=== PATIENT | male | born 1965 | race Two or more races ===

== ENCOUNTER 2017-08-30 10:44 | Inpatient (IN) | payer OTHER ==
[2017-08-30 13:22] VITALS: BMI 18.8
--- NOTE | 2017-08-30 14:58 | HP ---
COWS - Scale Resting Pulse: 0= [place] 80 or Below Sweatin= Chills/Flushing Restless Observation: 3= Extraneous Movement Pupil Size: 1= Pupils >than Normal Bone or Joint Aches: 2= Severe Diffuse Aches Runny Nose/ Eye Tearin= Runny Nose/Eyes GI Upset > 30mins: 2= Nausea/Diarrhea Tremor Observation: 2= Slight Tremor Visible Yawning Observation: 2= >3x During Session Anxiety or Irritability: 2=Irritable/Anxious Goose Flesh Skin: 0=Smooth Skin COWS Score: 17 Admission ROS S - HPI Chief Complaint: withdrawal sx Allergies/Adverse Reactions: Allergies Allergy/AdvReac Type Severity Reaction Status Date / Time No Known Allergies Allergy Verified 08/30/17 15:01 History of Present Illness: 51 years old male with long history of opiate nicotine dependence has depression is admitted to detox longest sobriety x 1 years + 2 years patient wants to do the best in this dotox Exam Limitations: No Limitations - Ebola screening Have you traveled outside of the country in the last 21 days: No Have you had contact with anyone from an Ebola affected area: No Have you been sick,other than usual withdrawal symptoms: No Do you have a fever: No - Review of Systems Constitutional: Loss of Appetite, Changes in sleep, Unintentional Wgt. Loss, Unexplained wgt Loss EENT: reports: No Symptoms Reported Respiratory: reports: No Symptoms reported Cardiac: reports: No Symptoms Reported GI: reports: Nausea, Poor Appetite, Poor Fluid Intake, Abdominal cramping : reports: No Symptoms Reported Musculoskeletal: reports: Back Pain, Joint Pain, Muscle Pain, Neck Pain Integumentary: reports: No Symptoms Reported Neuro: reports: Tremors Endocrine: reports: No Symptoms Reported Hematology: reports: No Symptoms Reported Psychiatric: reports: Judgement Intact, Orientated x3, Anxious, Depressed Other Systems: Reviewed and Negative Patient History - Patient Medical History Hx Anemia: No Hx Asthma: No Hx Chronic Obstructive Pulmonary Disease (COPD): No Hx Cancer: No Hx Cardiac Disorders: No Hx Congestive Heart Failure: No Hx Hypertension: No Hx Hypercholesterolemia: No Hx Pacemaker: No HX Cerebrovascular Accident: No Hx Seizures: No Hx Dementia: No Hx Diabetes: No Hx Gastrointestinal Disorders: No Hx Liver Disease: No Hx Genitourinary Disorders: No Hx Sexually Transmitted Disorders: No Hx Renal Disease (ESRD): No Hx Thyroid Disease: No Hx Human Immunodeficiency Virus (HIV): No Hx Hepatitis C: No Hx Depression: Yes Hx Suicide Attempt: No Hx Bipolar Disorder: No Hx Schizophrenia: No - PPD History Previous Implant?: Yes Documented Results: Negative w/o proof Implanted On Prior [facility] Admission?: No PPD to be Administered?: Yes - Smoking Cessation Smoking history: Current every day smoker Have you smoked in the past 12 months: Yes Aproximately how many cigarettes per day: 20 Cigars Per Day: 0 Hx Chewing Tobacco Use: No Initiated information on smoking cessation: Yes 'Breaking Loose' booklet given: 08/30/17 - Substance & Tx. History Hx Alcohol Use: No Hx Substance Use: Yes Substance Use Type: Opiates Hx Substance Use Treatment: Yes (06/2017 [place]) Family Disease History - Family Disease History Family History: Unremarkable (contact sporatically) Family Disease History: Other: Mother ( mva) Admission Physical Exam [facility] - Vital Signs Vital Signs: Vital Signs - 24 hr 08/30/17 13:20 Temperature 96.8 F L Pulse Rate 77 Respiratory 20 Rate Blood Pressure 101/67 - Physical General Appearance: Yes: Appropriately Dressed, Mild Distress, Tremorous, Irritable, Sweating, Anxious HEENTM: Yes: Hearing grossly Normal, Normal ENT Inspection, Normocephalic, Normal Voice Respiratory: Yes: Chest Non-Tender, Normal Breath Sounds, No Respiratory Distress, No Accessory Muscle Use, Hyperresonant Neck: Yes: Supple, Trachea in good position Breast: Yes: Breasts Symetrical Cardiology: Yes: Regular Rhythm, Regular Rate, S1, S2 Abdominal: Yes: Non Tender, Soft, Increased Bowel Sounds Genitourinary: Yes: Within Normal Limits Back: Yes: Normal Inspection Musculoskeletal: Yes: full range of Motion, Gait Steady, Back pain, Muscle Pain Extremities: Yes: Normal Inspection, Normal Range of Motion, Non-Tender, Tremors Neurological: Yes: Fully Oriented, Alert, Motor Strength 5/5, Normal Response, Depressed Affect Integumentary: Yes: Warm Lymphatic: Yes: Within Normal Limits - Diagnostic (1) Opioid dependence with withdrawal Current Visit: Yes Status: Acute (2) Nicotine dependence Current Visit: Yes Status: Acute (3) Depression with anxiety Current Visit: Yes Status: Acute (4) Weight loss Current Visit: Yes Status: Acute (5) COPD (chronic obstructive pulmonary disease) Current Visit: Yes Status: Chronic Qualifiers: COPD type: emphysema Emphysema type: unilateral Qualified Code(s): 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
[2017-08-30] MEDS ORDERED: ACETAMINOPHEN 325 MG TABLET (FP) PO PRN (15:14)
[2017-08-30] MEDS ORDERED: IBUPROFEN 400 MG TABLET (FP) PO PRN (15:14)
[2017-08-30] MEDS ORDERED: MAG HYDROX/AL HYDROX/SIMETH 30 ML UNIT-DOSE CUP PO PRN (15:14)
[2017-08-30] MEDS ORDERED: MENTHOL/PHENOL 1 EACH UD MM PRN (15:14)
[2017-08-30] MEDS ORDERED: LOPERAMIDE HCL 2 MG CAPSULE PO PRN (15:14)
[2017-08-30] MEDS ORDERED: P-EPHED 60MG/TRIPROLIDI 2.5MG TABLET PO PRN (15:14)
[2017-08-30] MEDS ORDERED: NICOTINE POLACRILEX 4 MG GUM BC PRN (15:14)
[2017-08-30] MEDS ORDERED: guaiFENesin/D-METHORPHAN HB 10 ML UNIT-DOSE CUPS PO PRN (15:14)
[2017-08-30] MEDS ORDERED: MAGNESIUM CITRATE 300 ML BOTTLE PO PRN (15:14)
[2017-08-30] MEDS ORDERED: MAGNESIUM HYDROX 2400MG/30ML ORAL SUSPENSION 30 ML CUP PO PRN (15:14)
[2017-08-30] MEDS ORDERED: ALBUTEROL SO4 0.083% IH SOL 2.5 MG/3 ML VIAL.NEB. NEB PRN (15:21)
[2017-08-30] MEDS ORDERED: ALBUTEROL SO4 18 GM HFA INHALER IH PRN (15:21)
[2017-08-30] MEDS ORDERED: METHADONE HCL 10 MG TABLET (FOR DETOX USE ONLY) PO ONE ×2 (17:00→23:00)
--- NOTE | 2017-08-30 17:42 | CONSULT ---
[facility] Psychiatric Consult - Data Date of interview: 08/30/17 Admission source: [facility] Identifying data: First admission to [facility] for this 51 y/o [place]ones[place] male ( [place]) seeking detox treatment on for heroin dependence.Patient is single without chidren,domiciled and supported on odd jobs. Substance Abuse History: Discussed with patient.Mr Guevara admits to a 35+ year history of heroin dependence (up to 10 bags daily via snorting). More details in [facility] report : Smoking history: Current every day smoker. Have you smoked in the past 12 months: Yes. Aproximately how many cigarettes per day: 20. Cigars Per Day: 0. Hx Chewing Tobacco Use: No. Initiated information on smoking cessation: Yes. 'Breaking Loose' booklet given: 08/30/17. - Substance & Tx. History. Hx Alcohol Use: No. Hx Substance Use: Yes. Substance Use Type : Opiates. Hx Substance Use Treatment: Yes (06/2017 [place]) Medical History: Patient endorses [facility] general [facility]. Psychiatric History: Patient denies. Physical/Sexual Abuse/Trauma History: No reported history of abuse. Additional Comment: Urine Drug Screen Results: OPI-Opiates, BAR-Barbiturates, MTD-Methadone, OXY-Oxycodone.Noted. Mental Status Exam - Mental Status Exam Alert and Oriented to: Time, Place, Person Cognitive Function: Good Patient Appearance: Well Groomed (appears much older than his stated age) Mood: Withdrawn, Anxious Affect: Mood Congruent, Constricted Patient Behavior: Fatigued, Cooperative Speech Pattern: Clear (speaks a broken welsh) Voice Loudness: Normal Thought Process: Goal Oriented Thought Disorder: Not Present Hallucinations: Denies Suicidal Ideation: Denies Homicidal Ideation: Denies Insight/Judgement: Poor Sleep: Well Appetite: Good (observed eating diner) Muscle strength/Tone: Normal Psychiatric Findings - Problem List ([place] 1, 2,3) (1) Opioid dependence with withdrawal Current Visit: Yes Status: Acute (2) Nicotine dependence Current Visit: Yes Status: Acute - Initial Treatment Plan Initial Treatment Plan: Psychoeducation.Detoxification is initiated.Observation.
--- NOTE | 2017-08-30 17:44 | CONSULT ---
[facility] Psychiatric Consult - Data Date of interview: 08/30/17 Admission source: [facility]
[2017-08-30 21:17] LABS: URINE APPEARANCE CLEAR; URINE BILIRUBIN NEGATIVE (NEGATIVE); URINE BLOOD NEGATIVE (NEGATIVE); URINE COLOR AMBER; URINE GLUCOSE (UA) NEGATIVE (NEGATIVE); URINE KETONE TRACE (NEGATIVE); URINE LEUK ESTERASE NEGATIVE (NEGATIVE); URINE NITRITE NEGATIVE (NEGATIVE); URINE PROTEIN NEGATIVE (NEGATIVE)
[2017-08-30] MEDS: THIAMINE HCL 100 MG TABLET (FP) PO SCH (22:35)
[2017-08-30] MEDS: MELATONIN 5 MG TABLETS PO SCH (22:35)
--- NOTE | 2017-08-31 08:22 | EKG ---
Test Reason : Blood Pressure : / mmHG Vent. Rate : 068 BPM Atrial Rate : 068 BPM P-R Int : 152 ms QRS Dur : 080 ms QT Int : 398 ms P-R-T Axes : 070 089 066 degrees QTc Int : 423 ms NORMAL SINUS RHYTHM NORMAL ECG NO PREVIOUS ECGS AVAILABLE Confirmed by CONY MALONE, YENNY ([id number]) on 08/31/2017 8:21:34 AM Referred By: Confirmed By:YENNY DONNELLY MD
[2017-08-31] MEDS ORDERED: METHADONE HCL 10 MG TABLET (FOR DETOX USE ONLY) PO ONE (10:00)
[2017-08-31] MEDS: NICOTINE 21 MG/24 HOURS TOPICAL PATCH TD SCH (10:07)
[2017-08-31] MEDS: diazePAM 5 MG TABLET PO PRN ×2 (10:07→20:41)
[2017-08-31] MEDS: PRENATAL VITAMINS W/ FOLIC ACID TABLET (FP) PO SCH (10:07)
--- NOTE | 2017-08-31 12:20 | PN ---
[facility] COWS - Scale Resting Pulse: 0= IN 80 or Below Sweatin= Chills/Flushing Restless Observation: 1= Difficult to Sit Still Pupil Size: 0= Normal to Room Light Bone or Joint Aches: 2= Severe Diffuse Aches Runny Nose/ Eye Tearin= None GI Upset > 30mins: 1= Stomach Cramp Tremor Observation of Outstretched Hands: 0= None Yawning Observation: 2= >3x During Session Anxiety or Irritability: 2=Irritable/Anxious Goose Flesh Skin: 3=Piloerection COWS Score: 12 BHS Progress Note (SOAP) Subjective: Body Aches, Stomach Cramping, Fatigue, Anxious. Objective: PATIENT A & O X 2 (UNCERTAIN ABOUT CURRENT LOCATION). PATIENT OBSERVED AMBULATING ON UNIT. NO ACUTE DISTRESS. 08/31/17 12:33 Vital Signs Temperature 97.6 F 08/31/17 10:04 Pulse Rate 79 08/31/17 10:04 Respiratory Rate 18 08/31/17 10:04 Blood Pressure 122/88 08/31/17 10:04 O2 Sat by Pulse Oximetry (%) Laboratory Tests 08/30/17 20:00 Urine Color Susana Urine Appearance Clear Urine pH 5.0 Ur Specific [place] 1.028 Urine Protein Negative Urine Glucose (UA) Negative Urine Ketones Trace H Urine Blood Negative Urine Nitrite Negative Urine Bilirubin Negative Urine Urobilinogen 2.0 Ur Leukocyte Esterase Negative UA RESULTS NOTED. CBC, CMP, RPR RESULTS PENDING. Assessment: 08/31/17 12:34 WITHDRAWAL SYMPTOMS. Plan: CONTINUE DETOX. INCREASE DAILY PO FLUID INTAKE.
[2017-08-31] MEDS: THIAMINE HCL 100 MG TABLET (FP) PO SCH (22:52)
[2017-08-31] MEDS: MELATONIN 5 MG TABLETS PO SCH (22:53)
[2017-09-01] MEDS: diazePAM 5 MG TABLET PO PRN ×2 (02:11→06:22)
--- NOTE | 2017-09-01 04:12 | PN ---
[facility] Progress Note Note: Patient requesting for a provider was seen at bedside. He requested for additional 10mg of methadone stating that he was using 10 bags of heroine andthe detox regimen will not help him. He refused all other alternative offers to help with his withdrawal. Patient had his prescribed dose of methadone yesterday and the next dose is due at 10.00am today.
[2017-09-01] MEDS ORDERED: hydrOXYzine PAMOATE 50 MG CAPSULE (FP) PO ONE (04:52)
--- NOTE | 2017-09-01 05:10 | PN ---
[facility] Progress Note Note: Patient was agitated and disruptive. He finally accepted to take Vistaril 50mg capsule oral as ordered. Patient was informed that he will get his Methadone dose when due this morning. He was gently escorted to his room and tucked into bed with an extra blanket provided for warmth.
[2017-09-01] MEDS: PRENATAL VITAMINS W/ FOLIC ACID TABLET (FP) PO SCH (09:40)
[2017-09-01] MEDS: NICOTINE 21 MG/24 HOURS TOPICAL PATCH TD SCH (09:40)
[2017-09-01] MEDS ORDERED: METHADONE HCL 5 MG TABLET (FOR DETOX USE ONLY) PO ONE (10:00)
--- NOTE | 2017-09-01 13:06 | PN ---
S CIWA - CIWA Score Nausea/Vomitin Muscle Tremors: 3 Anxiety: 5 Agitation: 5 Paroxysmal Sweats: No Perspiration Orientation: 0-Oriented Tacttile Disturbances: 2-Mild Itch/Numbness/Burn Auditory Disturbances: 0-None Visual Disturbances: 0-None Headache: 0-None Present CIWA-Ar Total Score: 18 BHS Progress Note (SOAP) Subjective: Anxious, Agitated, Nausea, Stomach Cramping. Objective: PATIENT A & O X 3, OBSERVED AMBULATING ON UNIT. NO ACUTE DISTRESS. 09/01/17 13:04 Vital Signs Temperature 97 F L 09/01/17 10:42 Pulse Rate 73 09/01/17 10:42 Respiratory Rate 19 09/01/17 10:42 Blood Pressure 118/79 09/01/17 10:42 O2 Sat by Pulse Oximetry (%) Laboratory Tests 08/30/17 20:00 Urine Color Susana Urine Appearance Clear Urine pH 5.0 Ur Specific [place] 1.028 Urine Protein Negative Urine Glucose (UA) Negative Urine Ketones Trace H Urine Blood Negative Urine Nitrite Negative Urine Bilirubin Negative Urine Urobilinogen 2.0 Ur Leukocyte Esterase Negative UA RESULTS NOTED. PATIENT REFUSED OTHER ADMISSION LABS. 09/01/17 13:04 Assessment: 09/01/17 13:05 WITHDRAWAL SYMPTOMS. Plan: CONTINUE DETOX.
[2017-09-01] MEDS ORDERED: ZOLPIDEM TARTRATE 5 MG TABLET PO ONE (20:05)
[2017-09-01] MEDS: THIAMINE HCL 100 MG TABLET (FP) PO SCH (22:00)
[2017-09-01] MEDS: MELATONIN 5 MG TABLETS PO SCH (22:00)
[2017-09-02] MEDS ORDERED: METHADONE HCL 5 MG TABLET (FOR DETOX USE ONLY) PO ONE (10:00)
[2017-09-02] MEDS: PRENATAL VITAMINS W/ FOLIC ACID TABLET (FP) PO SCH (11:05)
[2017-09-02] MEDS: diazePAM 5 MG TABLET PO PRN (11:05)
[2017-09-02] MEDS: NICOTINE 21 MG/24 HOURS TOPICAL PATCH TD SCH (11:05)
--- NOTE | 2017-09-02 16:54 | PN ---
[facility] Progress Note (SOAP) Subjective: PATIENT REFUSED TO ANSWER QUESTIONS BY POLICY WRITER REGARDING CURRENT DETOX SYMPTOMS THIS AM. Objective: PATIENT OBSERVED AMBULATING ON UNIT. 09/02/17 16:53 Vital Signs Temperature 96.2 F L 09/02/17 13:50 Pulse Rate 72 09/02/17 13:50 Respiratory Rate 18 09/02/17 13:50 Blood Pressure 102/69 09/02/17 13:50 O2 Sat by Pulse Oximetry (%) Laboratory Tests 08/30/17 20:00 Urine Color Susana Urine Appearance Clear Urine pH 5.0 Ur Specific [place] 1.028 Urine Protein Negative Urine Glucose (UA) Negative Urine Ketones Trace H Urine Blood Negative Urine Nitrite Negative Urine Bilirubin Negative Urine Urobilinogen 2.0 Ur Leukocyte Esterase Negative UA RESULTS NOTED. Assessment: 09/02/17 16:54 WITHDRAWAL SYMPTOMS. Plan: CONTINUE DETOX.
[2017-09-02] MEDS: MELATONIN 5 MG TABLETS PO SCH (22:20)
[2017-09-02] MEDS: THIAMINE HCL 100 MG TABLET (FP) PO SCH (22:20)
[2017-09-03] MEDS ORDERED: METHADONE HCL 10 MG TABLET (FOR DETOX USE ONLY) PO ONE (10:00)
[2017-09-03] MEDS: PRENATAL VITAMINS W/ FOLIC ACID TABLET (FP) PO SCH (10:13)
[2017-09-03] MEDS: NICOTINE 21 MG/24 HOURS TOPICAL PATCH TD SCH (10:13)
--- NOTE | 2017-09-03 14:47 | PN ---
[facility] Progress Note (SOAP) Subjective: Refused to speak with newspaper writer, covers head with blanket pretending to be asleep Objective: 09/03/17 14:45 Last Vital Signs Temp Pulse Resp BP Pulse Ox 97.4 F L 69 18 92/64 09/03/17 14:04 09/03/17 14:04 09/03/17 14:04 09/03/17 14:04 Laboratory Tests 08/30/17 20:00 Urine Color Susana Urine Appearance Clear Urine pH 5.0 Ur Specific [place] 1.028 Urine Protein Negative Urine Glucose (UA) Negative Urine Ketones Trace H Urine Blood Negative Urine Nitrite Negative Urine Bilirubin Negative Urine Urobilinogen 2.0 Ur Leukocyte Esterase Negative UA noted Assessment: 09/03/17 14:46 Withdrawal symptoms Plan: Continue detox Encouraged PO water intake for hydration Noted with hypotension: encourage to drink more water
[2017-09-03] MEDS: MELATONIN 5 MG TABLETS PO SCH ×2 (23:01→23:38)
[2017-09-03] MEDS: THIAMINE HCL 100 MG TABLET (FP) PO SCH ×2 (23:02→23:38)
[2017-09-04] MEDS ORDERED: METHADONE HCL 5 MG TABLET (FOR DETOX USE ONLY) PO ONE ×2 (06:00→11:12)
[2017-09-04 09:34] VITALS: BP 101/70; PULSE 104; TEMP 97.2
[2017-09-04] MEDS: NICOTINE 21 MG/24 HOURS TOPICAL PATCH TD SCH (10:24)
[2017-09-04] MEDS: PRENATAL VITAMINS W/ FOLIC ACID TABLET (FP) PO SCH (10:24)
--- NOTE | 2017-09-04 10:56 | PN ---
BHS Progress Note (SOAP) Subjective: DETOX COMPLETED. ALERT O X 3. OOB WITH STEADY GAIT. Objective: 09/04/17 10:55 Vital Signs Temperature 97.2 F L 09/04/17 09:33 Pulse Rate 104 H 09/04/17 09:33 Respiratory Rate 20 09/04/17 09:33 Blood Pressure 101/70 09/04/17 09:33 O2 Sat by Pulse Oximetry (%) Laboratory Last Values Urine Color Susana 08/30/17 20:00 Urine Appearance Clear 08/30/17 20:00 Urine pH 5.0 (5.0-8.0) 08/30/17 20:00 Ur Specific [place] 1.028 (1.001-1.035) 08/30/17 20:00 Urine Protein Negative (NEGATIVE) 08/30/17 20:00 Urine Glucose (UA) Negative (NEGATIVE) 08/30/17 20:00 Urine Ketones Trace (NEGATIVE) H 08/30/17 20:00 Urine Blood Negative (NEGATIVE) 08/30/17 20:00 Urine Nitrite Negative (NEGATIVE) 08/30/17 20:00 Urine Bilirubin Negative (NEGATIVE) 08/30/17 20:00 Urine Urobilinogen 2.0 mg/dL (0.2-1.0) 08/30/17 20:00 Ur Leukocyte Esterase Negative (NEGATIVE) 08/30/17 20:00 Assessment: 09/04/17 10:56 NAD Plan: D/C PT TODAY
--- NOTE | 2017-09-04 11:01 | DS ---
[facility] Detox Discharge Summary Admission Date: 08/30/17 Discharge Date: 09/04/17 - History Present History: Opioid Dependence Additional Comments: DETOX COMPLETED. ALERT O X 3. PT REPORTS HE HAS A PRIMARY CARE DOCTOR IN [facility] BUT DOES NOT REMEMBER THE NAME OF CLINIC OR DOCTOR BUT SAYS HE KNOWS HOW TO GET THERE. Pertinent Past History: PLEASE SEE DX BELOW - Physical Exam Results Vital Signs: Vital Signs Temperature 97.2 F L 09/04/17 09:33 Pulse Rate 104 H 09/04/17 09:33 Respiratory Rate 20 09/04/17 09:33 Blood Pressure 101/70 09/04/17 09:33 O2 Sat by Pulse Oximetry (%) Pertinent Admission Physical Exam Findings: WITHDRAWAL SX Laboratory Last Values Urine Color Susana 08/30/17 20:00 Urine Appearance Clear 08/30/17 20:00 Urine pH 5.0 (5.0-8.0) 08/30/17 20:00 Ur Specific [place] 1.028 (1.001-1.035) 08/30/17 20:00 Urine Protein Negative (NEGATIVE) 08/30/17 20:00 Urine Glucose (UA) Negative (NEGATIVE) 08/30/17 20:00 Urine Ketones Trace (NEGATIVE) H 08/30/17 20:00 Urine Blood Negative (NEGATIVE) 08/30/17 20:00 Urine Nitrite Negative (NEGATIVE) 08/30/17 20:00 Urine Bilirubin Negative (NEGATIVE) 08/30/17 20:00 Urine Urobilinogen 2.0 mg/dL (0.2-1.0) 08/30/17 20:00 Ur Leukocyte Esterase Negative (NEGATIVE) 08/30/17 20:00 - Treatment Hospital Course: Detox Protocol Followed, Detoxed Safely, Responded well, Discharged Condition Good - Medication Discharge Medications: Ambulatory Orders NK [No Known Home Medication] 08/30/17 - AMA Did Patient Leave Against Medical Advice: No
== END 2017-09-04 11:15 | disposition home or self-care (01) | DRG 773 ==
LOC: YASAS 10:44 → Y3N 15:33
PROVIDERS: ADMIT Internal Medicine; ATTEND Internal Medicine
PROC: HZ2ZZZZ Detoxification Services for Substance Abuse Treatment (ICD-10-PCS; principal; 2017-08-30)
DX: F11.23 Opioid dependence with withdrawal (principal); F17.210 Nicotine dependence, cigarettes, uncomplicated; F41.8 Other specified anxiety disorders; I95.9 Hypotension, unspecified; J43.0 Unilateral pulmonary emphysema [MacLeod's syndrome]; Z87.898 Personal history of other specified conditions
CPT/HCPCS: 81003; 93005; 93010